=== PATIENT | female | born 1945 | race Hispanic/Latino ===

== ENCOUNTER 2017-01-15 11:00 | Inpatient (IN) | payer MEDICARE ==
[2017-01-15 12:19] VITALS: BMI 24.2
[2017-01-29] MEDS ORDERED: Fentanyl 100 MCG/2 ML VIAL ONE ×3 (11:08→13:35)
[2017-01-29] MEDS ORDERED: Midazolam HCl 2 mg/2 ml Vial ONE (11:08)
[2017-01-29] MEDS ORDERED: Phenylephrine 10 MG/NS 250 ML 0 ML ONE (11:51)
[2017-01-29] MEDS ORDERED: Bupivacaine 0.25% HCL 30 ML VIAL ONE (11:51)
[2017-01-29] MEDS ORDERED: Bacitracin Zinc Ointment 30 gm TUBE ONE (12:09)
[2017-01-29] MEDS ORDERED: Fentanyl/Bupivacaine 250 ML in Premix Bag 1 BAG EPIDURAL SCH (12:30)
[2017-01-29] MEDS ORDERED: diphenhydrAMINE 50 MG/ML VIAL IVP PRN (12:30)
[2017-01-29] MEDS ORDERED: diphenhydrAMINE 25 MG CAP PO PRN (12:30)
[2017-01-29] MEDS ORDERED: HYDROcodone/Acetaminophen 5/325 mg Tablet PO PRN ×2 (12:30)
[2017-01-29] MEDS ORDERED: Promethazine HCl 25 MG SUPP PR PRN (12:30)
[2017-01-29] MEDS ORDERED: diphenhydrAMINE 50 MG/ML VIAL IM PRN (12:30)
[2017-01-29] MEDS ORDERED: Naloxone HCl 0.4 mg/ml Vial IVP PRN (12:30)
[2017-01-29] MEDS ORDERED: Bupivacaine 0.25% 10 ML VIAL EPIDURAL PRN (12:30)
[2017-01-29] MEDS ORDERED: Zolpidem Tartrate 5 MG TAB PO PRN (12:30)
[2017-01-29] MEDS ORDERED: Naloxone HCl 0.4 mg/ml Vial IV PRN (12:30)
[2017-01-29] MEDS ORDERED: Eucerin (Mineral Oil/Petrolatum,White) 30 gm Jar TOP PRN (12:30)
[2017-01-29] MEDS ORDERED: Promethazine HCl 25 MG/ML VIAL IM PRN ×2 (12:30→17:25)
[2017-01-29] MEDS ORDERED: STERILE WATER SLOW IVP ONE (13:00)
[2017-01-29] MEDS ORDERED: CEFOXITIN SODIUM SLOW IVP ONE (13:00)
[2017-01-29] MEDS ORDERED: Succinylcholine Chloride 20 MG/ML 10 ml SYRINGE FS ONE (13:13)
[2017-01-29] MEDS ORDERED: Glycopyrrolate 0.2 MG/ML 5 ML SYRINGE ONE (13:13)
[2017-01-29] MEDS ORDERED: Ondansetron HCl/PF 4 MG/2 ML Vial ONE ×2 (13:13→16:39)
[2017-01-29] MEDS ORDERED: Lidocaine 1% PF 5 ML VIAL ONE (13:13)
[2017-01-29] MEDS ORDERED: PHENYLEPHRINE-NS 100 MCG/ML 10 ML SYRINGE ONE (13:13)
[2017-01-29] MEDS ORDERED: Propofol 200 MG/20 ML VIAL ONE (13:13)
[2017-01-29] MEDS ORDERED: ePHEDrine/0.9% NaCl/PF SYRINGE 50 mg/10 ml ONE ×2 (13:13→16:34)
[2017-01-29] MEDS ORDERED: Mannitol 12.5 GM/50 ML ONE ×2 (15:10→15:17)
[2017-01-29] MEDS ORDERED: Fentanyl/Bupivacaine 250 ML EPIDURAL ONE (16:48)
[2017-01-29] MEDS ORDERED: Promethazine HCl 25 MG/ML VIAL ONE (17:12)
--- NOTE | 2017-01-29 17:21 | OP ---
DATE OF PROCEDURE: 01/29/2017 SURGEON: Javed Corbett M.D. HEATING TECHNICIAN: Dr. Didi Dougherty. PREOPERATIVE DIAGNOSIS: Right renal mass. POSTOPERATIVE DIAGNOSIS: Right renal mass. PROCEDURE PERFORMED: Right open partial nephrectomy via subcostal incision. INDICATIONS FOR PROCEDURE: Ms. Elmore is a 71-year-old female who initially had presented to me after being admitted to the hospital for gallstone pancreatitis. Her imaging demonstrated a r ight lower pole renal mass. After pancreatitis had resolved and she was doing better, we elected to go for an elective open partial nephrectomy due to the prior scarring and a larger size of the mass , which was slightly over 4 cm. All risks and benefits of surgery were discussed and she agreed to proceed forward. DESCRIPTION OF PROCEDURE: After identification of arm band and verification of consent, the patient was brought back to the operating room where she was placed under general anesthesia with endotrach eal intubation. She was then placed in the modified left lateral decubitus position with the bed fl exed. All pressure points padded and the patient was secured to the bed. The patient was then prep ped and draped in the usual sterile fashion. After appropriate timeout, a subcostal incision was ma de to include the previous laparoscopic port sites and states she had from her laparoscopic cholecys tectomy. The incision was carried from approximately midline to just medial to the twelfth rib. Di ssection was carried down with Bovie electrocautery through the external and internal oblique aponeu roses until the peritoneum was entered. The peritoneum was divided with Bovie electrocautery protec ting the underlying contents of the hands. The falciform ligament was divided using the LigaSure de vice. The white line of Toldt was then dissected using a right-angle with Bovie electrocautery. On ce the colon could be reflected medially, the Gerota's fascia and perinephric fat was identified. D issection was carried out posterior to the kidney to identify the psoas muscle. The genitofemoral n erve and psoas tendon were identified and the entire posterior space cleared. During the placement of a Bookwalter retractor and retraction of the bowel contents, the appendix was visualized and foun d to be normal attached to the cecum. The ureter was identified next to the gonadal vein. The gona sean vein was clipped and divided and the ureter was secured with a vessel loop. Dissection of the l ower pole renal mass was then performed removing the Gerota's fat surrounding the lower pole of the mass. The remainder of the kidney was freed up from these surrounding attachments using a combinati on of Bovie electrocautery, blunt dissection and the LigaSure device. The hilum was dissected caref ully once the duodenum had been reflected medially to expose two branches of the renal vein and mult iple renal arteries. Due to the bifurcating nature and posterior renal artery which was difficult t o visualize, I felt it would be better to clamp the hilum en bloc with a Satinsky clamp rather than attempt to attach the clamps with a remote clamp directly on the renal artery. The handheld ultraso und was brought in and an ultrasound was performed on the renal mass to ensure that the margins woul d be clear. The area of the planned partial nephrectomy was scored on the renal capsule using Bovie electrocautery. At this point, 12.5 grams of mannitol was given and the kidney was wrapped in the kidney bag and then iced for approximately 5 minutes until the kidney developed a whitish color. Th e ice was then removed and the bag removed. The Satinsky clamp was placed prior to icing the kidney . While the kidney was unclamped, the dissection was carried down with Bovie through the capsule of the kidney until the underlying parenchyma was visualized. This was then dissected free using a co mbination of blunt dissection with the back of a knife handle as well as sharp dissection with Metze nbaum scissors. Two to three calices were entered which were appropriate depth of the resection giv en that the mass was seen to be abutting the lower pole of renal amrik. There was an extremely smal l amounts of bleeding with the hilum clamped with Satinsky. The mass was completely dissected free and then visually inspected and not found to have any evidence of a mass or tumor showing through th e lower pole. This was then submitted for routine pathologic evaluation along with the overlying Ge rota's fat which had previously been dissected. The calices were closed using a 4-0 Vicryl in runni ng fashion until all calices were closed. The main renal parenchyma was then closed using a 0 chrom ic in a horizontal mattress suture with pledgets. Once the kidney was well approximated, the argon beam printing technician was used to coagulate the exposed aspect of the kidney to ensure that it would not b leed significantly. The Satinsky clamp was then removed and another 12.5 grams of mannitol given. There was a minimal amount of bleeding coming from between two of the 0 chromic, so another 0 chromi c was placed in a horizontal mattress fashion and this seemed to stop the bleeding entirely. FloSea l was then applied over the hilum and across the resection site with Surgicel wrapped around this ar ea to ensure that the FloSeal would stay in contact with the kidney. A drain was placed on the righ t lateral aspect in the pericolic gutter. The colon was then mobilized back to its original locatio n with the appendix placed in the right lower quadrant. CHRISTIE drain was brought out through the right lower quadrant. The fascias were then closed using a 0 PDS in two layers, one for the lower layer a nd internal oblique with the peritoneum and one for the external oblique aponeuroses. Katy was ap plied to the subcutaneous tissues after irrigation and the skin closed with skin tete. Island dr toledo was applied along with drain dressing and a drain stitch was placed. The patient was then ta jorge out of positioning, extubated, awakened and taken to PACU for recovery in stable condition. COMPLICATIONS: None. ESTIMATED BLOOD LOSS: 100 mL. RETAINED TUBES AND DRAINS: A #10 CHRISTIE drain and a 16 Indonesian Horton catheter. SPECIMEN: Right lower pole renal mass. DISPOSITION: Patient will go to PACU and then be admitted to the hospital for postoperative recover y with her epidural. Once she is adequately recovered, she can be discharged home and will follow u p with me on an outpatient basis for cancer surveillance.
[2017-01-29 17:23] LABS: Hematocrit 37.8 % (36.0-47.0); Red Blood Cell (RBC) Count 4.35 mill/uL (4.20-5.40); White Blood Cell (WBC) Count 11.7 thou/uL (4.8-10.8)
[2017-01-29 17:24] LABS: Mean Platelet Volume 8.3 fL (7.4-10.4)
[2017-01-29] MEDS ORDERED: Promethazine HCl 25 MG/ML VIAL SLOW IVP PRN (17:25)
[2017-01-29] MEDS ORDERED: Ondansetron HCl/PF 4 MG/2 ML Vial IVP PRN (17:25)
[2017-01-29 17:39] LABS: Anion Gap 9 mmol/L (10-20); BUN (Urea Nitrogen) 19 mg/dL (9.8-20.1); Calc. Creatinine Clearance 58 mL/min (70-130); Calcium 7.8 mg/dL (7.8-10.44); Carbon Dioxide 25 mmol/L (23-31); Chloride 106 mmol/L (98-107); Estimated GFR-MDRD 72
[2017-01-29] MEDS ORDERED: Oxybutynin 5 MG TAB PO PRN (18:13)
[2017-01-29] MEDS ORDERED: Bisacodyl 10 MG SUPP PR PRN (18:13)
[2017-01-29] MEDS ORDERED: hydrALAZINE 20 MG/ML VIAL SLOW IVP PRN (18:13)
--- NOTE | 2017-01-29 19:18 | RAD ---
AP CHEST: Indication: Evaluate for right sided pneumothorax. Comparison: 01-15-17 FINDINGS: No right sided pneumothorax is evident. There is suspected dural catheter overlying the left chest w all. There are surgical clips and surgical drain within the right upper quadrant of the abdomen. The lungs are hyperventilated. No definite pleural effusion is noted. Cardiomediastinal silhouette is w ithin normal limits. IMPRESSION: Low lung volumes. No definite pneumothorax. POS: [facility]
[2017-01-29] MEDS: Sodium Chloride 0.9% 1,000 ML IV SCH (21:35)
[2017-01-29] MEDS: CEFOXITIN SODIUM SLOW IVP SCH (21:37)
[2017-01-29] MEDS: STERILE WATER SLOW IVP SCH (21:37)
[2017-01-29] MEDS: Docusate 100 MG CAP PO SCH (21:37)
[2017-01-29] MEDS ORDERED: cefOXitin 1.5 GM in Sodium Chloride 0.9% 100 ML IVPB SCH (22:00)
[2017-01-30] MEDS: STERILE WATER SLOW IVP SCH (05:37)
[2017-01-30] MEDS: Sodium Chloride 0.9% 1,000 ML IV SCH ×4 (05:37→21:11)
[2017-01-30] MEDS: CEFOXITIN SODIUM SLOW IVP SCH (05:37)
[2017-01-30 05:39] LABS: #Lymphocytes 1.5 thou/uL (1.20-3.40); #Neutrophils 7.5 thou/uL (1.40-6.50); %Basophils 0.3 % (0.0-1.0); %Eosinophils 0.1 % (0.0-10.0); %Lymphocytes 14.5 % (21.0-51.0); %Monocytes 10.4 % (0.0-10.0); Hematocrit 35.9 % (36.0-47.0); Mean Platelet Volume 8.4 fL (7.4-10.4); Red Blood Cell (RBC) Count 4.14 mill/uL (4.20-5.40)
[2017-01-30 06:01] LABS: Anion Gap 9 mmol/L (10-20); BUN (Urea Nitrogen) 18 mg/dL (9.8-20.1); Calc. Creatinine Clearance 56 mL/min (70-130); Calcium 7.5 mg/dL (7.8-10.44); Carbon Dioxide 27 mmol/L (23-31); Chloride 108 mmol/L (98-107); Estimated GFR-MDRD 70
[2017-01-30] MEDS: traMADol HCl 50 MG TAB PO PRN ×2 (07:25→13:22)
[2017-01-30] MEDS: Docusate 100 MG CAP PO SCH ×2 (07:25→20:03)
[2017-01-30] MEDS: Ondansetron HCl/PF 4 MG/2 ML Vial IVP PRN (13:21)
[2017-01-30] MEDS ORDERED: cefOXitin 1.5 GM, Admixture Fee 1 EACH in Sterile Water 8.33 ML SLOW IVP SCH (14:00)
[2017-01-30] MEDS: Fentanyl/Bupivacaine 250 ML in Premix Bag 1 BAG EPIDURAL SCH (15:43)
[2017-01-30] MEDS ORDERED: Potassium Chloride 20 MEQ/100 ML PREMIX BAG IVPB SCH (17:00)
[2017-01-30] MEDS ORDERED: Potassium Chloride 20 MEQ in Sodium Chloride 0.9% 250 ML 250 ML IVPB SCH (17:00)
--- NOTE | 2017-01-30 17:37 | PRG ---
DATE OF SERVICE: 01/30/2017 SUBJECTIVE: The patient is having significant pain this morning stating her epidural was not workin g well. After receiving a bolus through the pain team, she states her pain is better controlled, bu t she continues to have fairly significant incisional pain. She denies any abdominal pain. She has a poor appetite, but no nausea or vomiting. She has poor inspiratory effort. She was able to get out of bed once today and sit in a chair. She denies any lower extremity pain, chest pain or shortn ess of breath. OBJECTIVE: VITAL SIGNS: Temperature 98.7, pulse 88, respirations 16, blood pressure 155/81, saturations 84% on room air. GENERAL: No apparent distress, lying quite still in the bed, conversant. CARDIOVASCULAR: Regular rate and rhythm. ABDOMEN: Soft, appropriately tender to palpation. Incision is dressed. CHRISTIE drain has scant amount of serosanguineous fluid. GENITOURINARY: [place] catheter in place, secured with clear yellow urine. EXTREMITIES: No clubbing, cyanosis or edema. LABORATORY EVALUATION: A full set of labs are in the [employer] system, which I have reviewed. Of no te, the patient's white count is 10 with hemoglobin of 11.4. Creatinine is 0.81. Chest x-ray from yesterday demonstrates no evidence of pneumothorax. ASSESSMENT AND PLAN: A 71-year-old female status post right open partial nephrectomy, betsy vering appropriately. She does have the expected amount of pain after a fairly large subcostal inci korina. We would recommend continuation of her epidural. We will start deep venous thrombosis prophy laxis with chemical prophylaxis in addition to her SCDs given that her hemoglobin is stable. She wi ll need to continue to use her incentive spirometer, try to get out of bed and continue pain control with her pain management team. SUMMARY: 1. Clear liquid diet. 2. Activity: As tolerated with assistance. 3. Continue IV fluids. 4. Continue Horton catheter until epidural was removed. 5. Pain control via pain management team. 6. Incentive spirometer use for her atelectasis and hypoxia. 7. We will continue to monitor.
[2017-01-30] MEDS: Enoxaparin Sodium 40 MG/0.4 ML SYRINGE SC SCH (20:02)
[2017-01-31 04:28] LABS: #Lymphocytes 1.3 thou/uL (1.20-3.40); #Monocytes 0.9 thou/uL (0.11-0.59); #Neutrophils 10.5 thou/uL (1.40-6.50); %Basophils 0.1 % (0.0-1.0); %Eosinophils 0.2 % (0.0-10.0); %Lymphocytes 10.2 % (21.0-51.0); %Monocytes 7.3 % (0.0-10.0); Hematocrit 37.9 % (36.0-47.0); Mean Platelet Volume 7.9 fL (7.4-10.4); Red Blood Cell (RBC) Count 4.36 mill/uL (4.20-5.40); White Blood Cell (WBC) Count 12.8 thou/uL (4.8-10.8)
[2017-01-31 04:50] LABS: Anion Gap 11 mmol/L (10-20); BUN (Urea Nitrogen) 12 mg/dL (9.8-20.1); Calc. Creatinine Clearance 64 mL/min (70-130); Calcium 8.5 mg/dL (7.8-10.44); Carbon Dioxide 26 mmol/L (23-31); Chloride 102 mmol/L (98-107); Estimated GFR-MDRD 82
[2017-01-31] MEDS ORDERED: NS 0.9% w/ 20 MEQ KCL 1,000 ML IV SCH (05:30)
[2017-01-31] MEDS ORDERED: Potassium Chloride 20 MEQ TAB PO SCH ×2 (05:30→08:45)
[2017-01-31] MEDS: D5 1/2 NS w/20 mEq KCL 1,000 ML IV SCH ×2 (10:24→20:40)
[2017-01-31] MEDS: Docusate 100 MG CAP PO SCH ×2 (10:25→20:41)
--- NOTE | 2017-01-31 12:22 | PRG ---
DATE OF SERVICE: 01/31/2017 SUBJECTIVE: The patient states her pain is much better today. She still has a poor appetite, but i s taking some p.o. fluids. She has not passed any gas. She has been up out of bed and has to walk with assistance on 1-2 occasions yesterday. She is using her incentive spirometer as instructed. S he denies any chest pain or shortness of breath. OBJECTIVE: VITAL SIGNS: Temperature 98.3, pulse 94, respirations 16, blood pressure 128/77, saturation 96% on 2 liters nasal cannula. Ins and outs 3.7 liters in, 1.9 liters out for net positive balance of 1.72 5 liters. Urine output has been 1900 mL with 75 mL out the CHRISTIE drain. GENERAL: No apparent distress, communicative and alert. CARDIOVASCULAR: Regular rate and rhythm. CHEST: Decreased breath sounds, bibasilar crackles. ABDOMEN: Soft, nondistended, appropriately tender to palpation. Incision dressing was removed toda y demonstrating an incision clean, dry, and intact without evidence of infection or dehiscence. CHRISTIE drain is serosanguineous with little output. Positive bowel sounds. GENITOURINARY: Horton catheter is in place with clear yellow urine, secured. EXTREMITIES: No clubbing, cyanosis or edema. LABORATORY DATA: Full set of labs in the [employer] system, which I have reviewed. Of note, the abdiel ent's white count is 12.8 with hemoglobin of 12. Creatinine is currently 0.71, potassium is 2.9. ASSESSMENT: A 71-year-old female with a right lower pole renal mass, status post open part ial nephrectomy recovering appropriately. Her pain appears to be better controlled. Would continue deferring pain management to the Anesthesia team. I recommend she continue to get up out of bed. We will advance her diet to regular diet, but I told her to go very slowly and eat only what she fee ls, but she should continue to hydrate to the best of her ability. If she does take in sufficient a serafin of p.o. intake, we will Hep-Lock her IV fluids. Horton catheter will be continued until her e pidural is removed. We will replace her potassium which is still quite low and check another BMP to day to ensure that her potassium is in adequate range. SUMMARY: 1. Up out of bed. 2. Incentive spirometer use. 3. Pain management per Anesthesia team. 4. Potassium replacement. Repeat BMP in the afternoon. 5. DVT prophylaxis with SCDs and Lovenox. 6. We will continue observation and await recovery of ambulation, bowel function and pain control.
[2017-01-31 12:43] LABS: Anion Gap 12 mmol/L (10-20); BUN (Urea Nitrogen) 13 mg/dL (9.8-20.1); Calc. Creatinine Clearance 65 mL/min (70-130); Calcium 8.1 mg/dL (7.8-10.44); Carbon Dioxide 25 mmol/L (23-31); Chloride 103 mmol/L (98-107); Estimated GFR-MDRD 83
[2017-01-31 16:26] LABS: Anion Gap 10 mmol/L (10-20); BUN (Urea Nitrogen) 12 mg/dL (9.8-20.1); Calc. Creatinine Clearance 67 mL/min (70-130); Calcium 8.2 mg/dL (7.8-10.44); Carbon Dioxide 27 mmol/L (23-31); Chloride 104 mmol/L (98-107); Estimated GFR-MDRD 86
[2017-01-31] MEDS: Fentanyl/Bupivacaine 250 ML in Premix Bag 1 BAG EPIDURAL SCH (17:15)
[2017-01-31] MEDS: Enoxaparin Sodium 40 MG/0.4 ML SYRINGE SC SCH (20:41)
[2017-02-01 04:46] LABS: #Lymphocytes 1.3 thou/uL (1.20-3.40); #Monocytes 0.8 thou/uL (0.11-0.59); #Neutrophils 9.7 thou/uL (1.40-6.50); %Basophils 0.1 % (0.0-1.0); %Eosinophils 0.4 % (0.0-10.0); %Monocytes 6.7 % (0.0-10.0); Hematocrit 37.7 % (36.0-47.0); Mean Platelet Volume 8.2 fL (7.4-10.4); White Blood Cell (WBC) Count 11.9 thou/uL (4.8-10.8)
[2017-02-01 04:58] LABS: Anion Gap 10 mmol/L (10-20); BUN (Urea Nitrogen) 9 mg/dL (9.8-20.1); Calc. Creatinine Clearance 71 mL/min (70-130); Calcium 8.7 mg/dL (7.8-10.44); Carbon Dioxide 30 mmol/L (23-31); Chloride 99 mmol/L (98-107); Estimated GFR-MDRD Greater than 90
[2017-02-01] MEDS: Losartan/Hydrochlorothiazide 100 mg/25 mg Tablet PO SCH (09:11)
[2017-02-01] MEDS: Docusate 100 MG CAP PO SCH ×2 (09:11→21:05)
[2017-02-01] MEDS: traMADol HCl 50 MG TAB PO PRN ×2 (09:16→23:31)
[2017-02-01] MEDS: Ondansetron HCl/PF 4 MG/2 ML Vial IVP PRN (09:16)
[2017-02-01] MEDS: D5 1/2 NS w/20 mEq KCL 1,000 ML IV SCH (16:16)
--- NOTE | 2017-02-01 17:17 | PRG ---
DATE OF SERVICE: 02/01/2017 SUBJECTIVE: The patient states she is feeling much better today. Her pain is minimal and her epidu ral was actually removed this morning secondary to her not requiring any further pain through the ep idural. She states that her pain has been pretty well controlled with tramadol alone. She is still getting up out of bed and walking. She is tolerating a regular diet. She denies any chest pain or shortness of breath. She still has a Horton catheter in her CHRISTIE drain. PHYSICAL EXAMINATION: VITAL SIGNS: Temperature 98.2, pulse 85, respirations 14, blood pressure 159/81, saturations 92% on room air. Ins and outs 2.3 liters in and 3.2 liters out, -930 mL balance. JPs put out 30 mL GENERAL: No apparent distress, communicative and alert. CARDIOVASCULAR: Regular rate and rhythm. ABDOMEN: Soft, nontender, and nondistended. Incision is clean, dry, and intact. CHRISTIE with scant ser osanguineous fluid. Positive bowel sounds. GENITOURINARY: Horton catheter in place with clear yellow urine. EXTREMITIES: No clubbing, cyanosis or edema. LABORATORY DATA: On laboratory evaluation, a full set of labs is in the [employer] system, which I re viewed. Of note, white count 11.9 with creatinine of 0.64 and potassium is 3.5. ASSESSMENT AND PLAN: A 71-year-old female with renal cell carcinoma on the right lower kid ceasar status post right open partial nephrectomy, recovering very well. She has met the majority of h er criteria for discharge and we are going to plan discontinue of her Horton catheter tonight and dis continuation of her IV fluids. We will plan discontinue of the CHRISTIE drain in the morning. Dispositio n to home is pending; however being able to tolerate adequate amounts of poor p.o. intake and keep r egular food down. Continue to ambulate. Her pain controlled with pain pills only and normal vital signs. Assuming she meets all these criteria, she should be able to be discharged tomorrow.
[2017-02-01] MEDS: Enoxaparin Sodium 40 MG/0.4 ML SYRINGE SC SCH (21:06)
[2017-02-02 04:40] LABS: #Eosinphils 0.1 thou/uL (0.0-0.7); #Lymphocytes 1.5 thou/uL (1.20-3.40); #Monocytes 0.8 thou/uL (0.11-0.59); #Neutrophils 5.2 thou/uL (1.40-6.50); %Basophils 0.4 % (0.0-1.0); %Eosinophils 1.9 % (0.0-10.0); %Monocytes 9.8 % (0.0-10.0); Hematocrit 36.6 % (36.0-47.0); Mean Platelet Volume 8.5 fL (7.4-10.4); Red Blood Cell (RBC) Count 4.26 mill/uL (4.20-5.40); White Blood Cell (WBC) Count 7.6 thou/uL (4.8-10.8)
[2017-02-02 04:54] LABS: Anion Gap 12 mmol/L (10-20); BUN (Urea Nitrogen) 10 mg/dL (9.8-20.1); Calc. Creatinine Clearance 68 mL/min (70-130); Calcium 8.6 mg/dL (7.8-10.44); Carbon Dioxide 31 mmol/L (23-31); Chloride 97 mmol/L (98-107); Estimated GFR-MDRD 87
[2017-02-02] MEDS ORDERED: Potassium Chloride 20 MEQ TAB PO SCH (05:30)
[2017-02-02] MEDS: Losartan/Hydrochlorothiazide 100 mg/25 mg Tablet PO SCH (09:42)
[2017-02-02] MEDS: Docusate 100 MG CAP PO SCH (09:42)
[2017-02-02 13:49] VITALS: BP 156/83; TEMP 98.1
--- NOTE | 2017-02-02 13:52 | PRG ---
DATE OF SERVICE: 02/02/2017 SUBJECTIVE: The patient states she is feeling well. Her pain has been controlled with tramadol all night without any exacerbations and no use of IV pain medication. She has been up out of bed. She is tolerating a regular diet well. She has not had a bowel movement, but is passing gas. She has urinated after her Horton catheter has been removed. She states that she would like to go home. OBJECTIVE: VITAL SIGNS: Temperature 98.4, pulse 93, respirations 20, blood pressure 166/90, saturation is 92% on room air. GENERAL: In no apparent distress, communicative and alert. CARDIOVASCULAR: Regular rate and rhythm. CHEST: Decreased breath sounds, bibasilar crackles, otherwise clear. ABDOMEN: Soft, nontender, nondistended. Incision clean, dry, and intact without evidence of infect ion. EXTREMITIES: No clubbing, cyanosis, or edema. LABORATORY EVALUATION: A full set of labs done in the [email or web address] system, which I have reviewed. Of n ote, the patient's white count was 7.6 with hemoglobin of 11.7. Potassium was low at 2.8, otherwise electrolytes are normal, and creatinine was 0.67. ASSESSMENT AND PLAN: A 71-year-old female, status post right open partial nephrectomy, pos toperative day #4, doing very well. She has recovered nearly completely. She does have some hypoka lemia and I have replaced her potassium today. I do not think she needs to stay in the hospital for low potassium, but I will plan for repeat labs 2 days after discharge to ensure that her potassium is not dropping again. If she continues to have decreasing potassium, she will need a workup for po tential hyperaldosteronism or other potential endocrine etiologies of her low potassium, which we ca n workup. Otherwise, she does appear to be in good shape and has met all my criteria for discharge. We will plan for discharge and follow up in 2 weeks for staple removal.
--- NOTE | 2017-02-02 16:15 | DIS ---
DATE OF ADMISSION: 01/29/2017 DATE OF DISCHARGE: 02/02/2017 ADMITTING PHYSICIAN: Javed Corbett M.D. DISCHARGING PHYSICIAN: Javed Corbett M.D. ADMITTING DIAGNOSIS: Right renal mass. DISCHARGE DIAGNOSES: Right clear cell renal cell carcinoma. PROCEDURE PERFORMED: Right open partial nephrectomy. BRIEF HISTORY: Mrs. Elmore is a 71-year-old female who presented to the hospital for a rig ht renal mass. She is planning to have this mass removed. HOSPITAL COURSE: After her surgery (please see operative note for details), she was admitted to the hospital for postoperative recovery. She had an epidural, which was used for pain control and the Anesthesia team managed her on this issue. Her epidural was able to be removed on postoperative day #3. The patient had excellent pain control afterwards. She remained without the use of IV pain me dication in 24 hours by the fourth postoperative day. Her diet was advanced from a clear liquid t to a regular diet on postoperative day #2 and she continued to tolerate regular diet. Her cathete r was removed on postoperative day #3 after her epidural was removed and she voided without difficul ty. The patient began ambulating on postoperative day #1 and had been able to get out of bed on her own and only increase her strength and did well with this issue as well. Her pain has been able to be controlled with tramadol. The patient did suffer 2 episodes of hypokalemia which required potas sium replacement. She was 2.9 on 01/31/2017 and then 2.8 on 02/02/2017, these were treated with IV and oral potassium and her potassium remained somewhat stable during this time, but does have a down vernon trend, although it is slow. We have elected to work this issue up on an outpatient basis as josé miguel crump does not wish to stay in the hospital any longer. DISPOSITION: Discharge to home. DISCHARGE CONDITION: Good. DISCHARGE MEDICATIONS: Include resuming all of her home medications. In addition, she will be give n tramadol 50 mg 1-2 tablets p.o. q.6 hours p.r.n. pain, Colace 100 mg p.o. b.i.d. and [place] 5/325 m g 1-2 tablets p.o. q.4 hours p.r.n. pain. FOLLOWUP: Will be in approximately 1-2 weeks for staple removal. We will plan a BMP in 2-3 days po stoperatively early next week for checking her potassium. If her potassium is low again, we will pr obably put her on daily potassium while she undergoes a workup for her hypokalemia. DISCHARGE INSTRUCTIONS: Include no heavy lifting, no strenuous activity, no lifting over 20 pounds, no driving for 4 weeks. She may not submerge, but may shower. She should not scrub the incision. She is to notify me for fevers, chills, persistent vomiting, bleeding from the incision site, dehis cence of the incision site, chest pain, shortness of breath, lower extremity swelling, uncontrolled pain or any other concerning signs or symptoms the patient may have.
== END 2017-02-02 13:58 | disposition home or self-care (01) | DRG 657 ==
LOC: SURG A 01-29 10:53
PROVIDERS: ADMIT Urology; ATTEND Urology
PROC: 0TB00ZZ Excision of Right Kidney, Open Approach (ICD-10-PCS; principal; 2017-01-29)
PROC: 3E0S3BZ Introduction of Anesthetic Agent into Epidural Space, Percutaneous Approach (ICD-10-PCS; 2017-01-29)
DX: C64.1 Malignant neoplasm of right kidney, except renal pelvis (principal); J98.11 Atelectasis; I10 Essential (primary) hypertension; E87.6 Hypokalemia; E78.5 Hyperlipidemia, unspecified; Z87.19 Personal history of other diseases of the digestive system
CPT/HCPCS: 36415; 71010; 80048; 85025; 85027; 86850; 86900; 86901; 88307; A4216; J0131; J0360; J0694; J1170; J1650; J2001; J2150; J2250; J2405; J2550; J2704; J3010; J3480; J3490; J7050; S0020

== ENCOUNTER 2017-01-15 11:40 | Outpatient (CLI) | payer MEDICARE ==
[2017-01-15 13:50] LABS: Hematocrit 42.5 % (36.0-47.0); Mean Platelet Volume 8.8 fL (7.4-10.4); Red Blood Cell (RBC) Count 4.91 mill/uL (4.20-5.40); White Blood Cell (WBC) Count 6.3 thou/uL (4.8-10.8)
[2017-01-15 13:56] LABS: PTT 31.5 SEC (22.9-36.1); Prothrombin Time 13.3 SEC (12.0-14.7)
[2017-01-15 13:57] LABS: Bilirubin Negative (Negative); Blood, Urine Negative (Negative); Glucose, Urine (Dipstick) Negative (Negative); Ketone, Urine Negative (Negative); Nitrite Negative (Negative); Protein, Urine (Dipstick) Negative (Neg-Trace); Urobilinogen 0.2 mg/dL (0.2-1.0)
[2017-01-15 14:12] LABS: ALT (SGPT) 11 U/L (8-55); AST (SGOT) 19 U/L (5-34); Alkaline Phosphatase 55 U/L (40-150); Anion Gap 12 mmol/L (10-20); BUN (Urea Nitrogen) 20 mg/dL (9.8-20.1); Bilirubin, Total 0.8 mg/dL (0.2-1.2); Calc. Creatinine Clearance 0 mL/min (70-130); Calcium 9.3 mg/dL (7.8-10.44); Carbon Dioxide 29 mmol/L (23-31); Chloride 105 mmol/L (98-107); Estimated GFR-MDRD 75; Globulin 3.2 g/dL (2.4-3.5); Protein, Total 7.4 g/dL (6.0-8.3)
[2017-01-15 14:15] LABS: Bacteria/HPF None Seen HPF (None Seen); Hyaline Casts/LPF 0-3 HYALINE CAST LPF (0-3 Hyaline); Squamous Epithelial 0-3 HPF (0-3); WBC/HPF 0-3 HPF (0-3)
--- NOTE | 2017-01-15 15:15 | EKG ---
Test Reason : Blood Pressure : / mmHG Vent. Rate : 073 BPM Atrial Rate : 073 BPM P-R Int : 138 ms QRS Dur : 094 ms QT Int : 412 ms P-R-T Axes : 037 -05 076 degrees QTc Int : 453 ms Normal sinus rhythm Nonspecific T wave abnormality Abnormal ECG Confirmed by ROJAS CARRANZA ([id number]) on 01/15/2017 3:15:04 PM Referred By: KINA Confirmed By:ROJAS CARRANZA
--- NOTE | 2017-01-15 16:05 | RAD ---
TWO VIEW CHEST: 01/15/17 HISTORY: History of renal mass. Followup. FINDINGS: There is no consolidation, effusion or pneumothorax. No significant change from 10/30/16 exam. IMPRESSION: Stable chest. POS: [facility]
== END 2017-01-15 11:41 | disposition home or self-care (01) ==
LOC: LABBT 11:40
PROVIDERS: ATTEND Urology
DX: Z01.818 Encounter for other preprocedural examination (principal); N28.89 Other specified disorders of kidney and ureter
CPT/HCPCS: 71020; 80053; 81001; 85027; 85610; 85730; 87086; 93005; 93010

== ENCOUNTER 2017-01-26 09:07 | Outpatient (CLI) | payer MEDICARE | END 2017-01-26 09:08 | disposition home or self-care (01) | LOC: LABBT 09:07 | PROVIDERS: ATTEND Urology | DX: Z01.818 Encounter for other preprocedural examination (principal); N28.89 Other specified disorders of kidney and ureter | CPT/HCPCS: 86850; 86900; 86901 ==

== ENCOUNTER 2019-10-29 08:53 | Outpatient (CLI) | payer MEDICARE ==
--- NOTE | 2019-10-29 09:39 | ULT ---
US Renal Bilateral STANDARD: 10/29/2019 12:00 AM CLINICAL HISTORY: History of renal cell carcinoma of the right kidney status post partial nephrectomy . STUDY: Renal ultrasound COMPARISON: None. FINDINGS: Right kidney: Echogenicity: Normal. Masses/cysts: None. Hydronephrosis: None. Calcifications: None. Length: 7.1 cm Left kidney: Echogenicity: Normal. Masses/cysts: None. Hydronephrosis: None. Calcifications: None. Length: 10.3 cm Limited visualization of the urinary bladder is unremarkable. Both ureteral jets were seen. IMPRESSION: Unremarkable renal ultrasound
== END 2019-10-29 08:54 | disposition home or self-care (01) ==
LOC: SCSULT 08:53
PROVIDERS: ATTEND Urology
DX: C64.2 Malignant neoplasm of left kidney, except renal pelvis (principal)
CPT/HCPCS: 76770